=== PATIENT | female | born 2000 | race African-American/Black ===

== ENCOUNTER 2022-04-22 09:24 | Emergency (ER) | payer SELFPAY | END 2022-04-22 13:18 | disposition home or self-care (01) | LOC: MW.ED 09:24 | DX: S83.91XA Sprain of unspecified site of right knee, initial encounter (principal); W19.XXXA Unspecified fall, initial encounter | CPT/HCPCS: 73562-26-RT; 73562-RT; 99283 ==

== ENCOUNTER 2022-06-30 18:56 | Emergency (ER) | payer SELFPAY ==
[2022-06-30] MEDS ORDERED: traMADol 50 MG Tab PO ONE (19:39)
== END 2022-06-30 20:20 | disposition home or self-care (01) ==
LOC: MW.ED 18:56
DX: S93.401A Sprain of unspecified ligament of right ankle, initial encounter (principal); X50.1XXA Overexertion from prolonged static or awkward postures, initial encounter
CPT/HCPCS: 73610; 99283; A9270

== ENCOUNTER 2022-07-04 15:17 | Emergency (ER) | payer SELFPAY ==
[2022-07-04] MEDS ORDERED: Ketorolac 30 MG/ML SDV IM STA (15:40)
== END 2022-07-04 17:06 | disposition home or self-care (01) ==
LOC: MW.ED 15:17
DX: S93.401A Sprain of unspecified ligament of right ankle, initial encounter (principal); W10.9XXA Fall (on) (from) unspecified stairs and steps, initial encounter
CPT/HCPCS: 73610; 96372; 99283; J1885

== ENCOUNTER 2022-08-10 22:32 | Emergency (ER) | payer MEDICAID | END 2022-08-11 00:58 | disposition home or self-care (01) | LOC: MW.ED 22:32 | DX: S62.613A Displaced fracture of proximal phalanx of left middle finger, initial encounter for closed fracture (principal); X50.1XXA Overexertion from prolonged static or awkward postures, initial encounter | CPT/HCPCS: 73110-26-LT; 73110-LT; 73130-26-LT; 73130-LT; 99283 ==

== ENCOUNTER 2022-08-11 19:19 | Emergency (ER) | payer MEDICAID ==
[2022-08-11] MEDS ORDERED: Ketorolac 30 MG/ML SDV IM STA (23:10)
== END 2022-08-11 23:34 | disposition home or self-care (01) ==
LOC: MW.ED 19:19
DX: S62.613A Displaced fracture of proximal phalanx of left middle finger, initial encounter for closed fracture (principal); W22.8XXA Striking against or struck by other objects, initial encounter
CPT/HCPCS: 96372; 99283; J1885

== ENCOUNTER 2022-08-17 00:58 | Emergency (ER) | payer MEDICAID ==
[2022-08-17] MEDS ORDERED: Ibuprofen 400 MG Tab PO ONE (01:11)
== END 2022-08-17 02:18 | disposition home or self-care (01) ==
LOC: MW.ED 00:58
DX: S62.92XA Unspecified fracture of left hand, initial encounter for closed fracture (principal); W01.0XXA Fall on same level from slipping, tripping and stumbling without subsequent striking against object, initial encounter
CPT/HCPCS: 73130; 99283; A9270

== ENCOUNTER 2022-08-20 01:05 | Observation (INO) | payer MEDICAID ==
[2022-08-20] MEDS ORDERED: Sodium Chloride 0.9% 2.5 ML Syringe FLUSH PRN ×2 (01:29→07:57)
[2022-08-20] MEDS ORDERED: Sodium Chloride 0.9% 1,000 ML IV ONE (01:29)
[2022-08-20] MEDS ORDERED: Sodium Chloride 0.9% 10 ML Syringe FLUSH PRN ×2 (01:29→07:57)
[2022-08-20 02:45] LABS: CARBON DIOXIDE,CO2 40.7 mmol/L (21.0-32.0)
[2022-08-20 02:47] LABS: POTASSIUM,K 1.9 mmol/L (3.5-5.1)
[2022-08-20] MEDS ORDERED: Potassium Chloride 20 MEQ in Premix Bag 1 BAG IV ONE (02:48)
[2022-08-20] MEDS ORDERED: Potassium Chloride 20 MEQ Tab.ER PO ONE ×2 (02:49→12:45)
[2022-08-20] MEDS ORDERED: Sodium Chloride 0.9% 250 ML IV ONE (03:00)
[2022-08-20] MEDS: Potassium Chloride 20 MEQ in Premix Bag 1 BAG IV ONE ×2 (03:17→05:27)
[2022-08-20] MEDS ORDERED: Ondansetron 4 MG/2 ML SDV IVPUSH PRN (07:57)
[2022-08-20] MEDS ORDERED: Acetaminophen 325 MG Tab PO PRN (07:57)
[2022-08-20 08:59] LABS: CARBON DIOXIDE,CO2 34.6 mmol/L (21.0-32.0); POTASSIUM,K 2.7 mmol/L (3.5-5.1)
[2022-08-20] MEDS ORDERED: Magnesium Sulfate/Water 2 GM in Premix Bag 1 BAG IV ONE (09:39)
[2022-08-20] MEDS ORDERED: Lactated Ringers 1,000 ML IV SCH (09:45)
[2022-08-20] MEDS: Potassium Chloride 100 ML IV SCH ×2 (10:25→14:32)
[2022-08-20] MEDS: Magnesium Sulfate/Water 2 GM in Premix Bag 1 BAG IV ONE ×2 (10:31→13:30)
[2022-08-20] MEDS ORDERED: Potassium Chloride 100 ML IV SCH (14:30)
[2022-08-20] MEDS ORDERED: LORazepam 2 MG/ML SDV IVPUSH PRN (15:23)
[2022-08-20] MEDS: LORazepam 2 MG/ML SDV IVPUSH PRN (20:21)
[2022-08-21 06:04] LABS: CARBON DIOXIDE,CO2 29.1 mmol/L (21.0-32.0); POTASSIUM,K 3.1 mmol/L (3.5-5.1)
[2022-08-21] MEDS: Potassium Chloride 20 MEQ Tab.ER PO SCH ×2 (09:15→11:22)
[2022-08-21] MEDS: LORazepam 2 MG/ML SDV IVPUSH PRN ×2 (10:36→15:23)
[2022-08-21] MEDS ORDERED: Haloperidol 1 MG Tab PO ONE (10:39)
[2022-08-21] MEDS ORDERED: D5 1/2 NS w/ 20 mEq/L KCl 1,000 ML IV SCH (10:45)
[2022-08-21] MEDS: Topiramate 50 MG Tab PO SCH ×2 (11:21→21:36)
[2022-08-21] MEDS: Dextrose 5%-0.45% NaCl 1,000 ML IV SCH (11:40)
[2022-08-21] MEDS: LORazepam 0.5 MG Tab PO SCH ×2 (14:43→21:37)
[2022-08-21 17:13] LABS: CARBON DIOXIDE,CO2 29.6 mmol/L (21.0-32.0); POTASSIUM,K 3.9 mmol/L (3.5-5.1)
[2022-08-21] MEDS ORDERED: Haloperidol 1 MG Tab PO SCH (21:00)
[2022-08-22] MEDS: LORazepam 2 MG/ML SDV IVPUSH PRN (02:12)
[2022-08-22] MEDS: LORazepam 0.5 MG Tab PO SCH ×2 (06:07→13:37)
[2022-08-22 06:36] LABS: CARBON DIOXIDE,CO2 29.7 mmol/L (21.0-32.0); POTASSIUM,K 3.6 mmol/L (3.5-5.1)
[2022-08-22] MEDS: Dextrose 5%-0.45% NaCl 1,000 ML IV SCH (07:32)
[2022-08-22] MEDS ORDERED: Magnesium Sulfate/Water 2 GM in Premix Bag 1 BAG IV ONE (09:06)
[2022-08-22] MEDS: Topiramate 50 MG Tab PO SCH (09:25)
[2022-08-22] MEDS ORDERED: Haloperidol 1 MG Tab PO ONE (17:12)
[2022-08-22] MEDS ORDERED: Topiramate 50 MG Tab PO ONE (17:16)
== END 2022-08-22 18:10 | disposition home or self-care (01) ==
LOC: MW.ED 01:05 → MW.MS 03:06
PROVIDERS: ADMIT Internal Medicine; ATTEND Internal Medicine
DX: E87.6 Hypokalemia (principal); F50.2 Bulimia nervosa; J45.909 Unspecified asthma, uncomplicated; K21.9 Gastro-esophageal reflux disease without esophagitis; F17.210 Nicotine dependence, cigarettes, uncomplicated; Z72.89 Other problems related to lifestyle; Z98.890 Other specified postprocedural states; Z20.822 Contact with and (suspected) exposure to COVID-19
CPT/HCPCS: 36415; 71045; 74176; 80048; 80053; 81001; 81025; 83690; 83735; 84100; 84132; 84484; 85025; 87635; 93005; 96361; 96365; 96366; 96368; 96375; 96376; 99285; A9270; G0378; J2060; J2405; J3475; J3480; J7030; J7042; J7050; J7120; U0002

== ENCOUNTER 2022-08-30 15:34 | Emergency (ER) | payer MEDICAID ==
[2022-08-30] MEDS ORDERED: Sodium Chloride 0.9% 10 ML Syringe FLUSH PRN (17:49)
[2022-08-30] MEDS ORDERED: Sodium Chloride 0.9% 2.5 ML Syringe FLUSH PRN (17:49)
[2022-08-30] MEDS ORDERED: Sodium Chloride 0.9% 1,000 ML IV ONE (17:50)
[2022-08-30 18:21] LABS: CARBON DIOXIDE,CO2 37.9 mmol/L (21.0-32.0); POTASSIUM,K 2.7 mmol/L (3.5-5.1)
[2022-08-30] MEDS ORDERED: Potassium Chloride 20 MEQ in Premix Bag 1 BAG IV ONE (18:48)
[2022-08-30] MEDS ORDERED: Potassium Chloride 20 MEQ Tab.ER PO STA (18:49)
[2022-08-30] MEDS ORDERED: Sodium Chloride 0.9% 250 ML IV SCH (19:00)
[2022-08-30] MEDS ORDERED: LORazepam 2 MG/ML SDV IVPUSH ONE (19:48)
[2022-08-30 23:15] LABS: CARBON DIOXIDE,CO2 36.4 mmol/L (21.0-32.0); POTASSIUM,K 2.9 mmol/L (3.5-5.1)
[2022-08-30] MEDS ORDERED: Potassium Chloride 10% 20 MEQ/15 ML Soln 30 ML UD Cup PO ONE (23:34)
[2022-08-30] MEDS ORDERED: NS with KCl 40mEq 1,000 ML IV ONE (23:56)
[2022-08-31] MEDS ORDERED: LORazepam 2 MG/ML SDV IVPUSH ONE ×2 (00:24→01:29)
[2022-08-31 04:59] LABS: CARBON DIOXIDE,CO2 31.9 mmol/L (21.0-32.0); POTASSIUM,K 3.5 mmol/L (3.5-5.1)
== END 2022-08-31 05:32 | disposition home or self-care (01) ==
LOC: MW.ED 15:34
DX: F50.2 Bulimia nervosa (principal); E87.6 Hypokalemia; Z68.1 Body mass index [BMI] 19.9 or less, adult
CPT/HCPCS: 36415; 71045; 80048; 80053; 83735; 84703; 85025; 93005; 96361; 96365; 96366; 96375; 96376; 99285; A9270; J2060; J3480; J3490; J7030; J7050; 93010; 99284

== ENCOUNTER 2022-10-21 21:21 | Emergency (ER) | payer MEDICAID ==
[2022-10-21] MEDS ORDERED: Sodium Chloride 0.9% 10 ML Syringe FLUSH PRN (21:23)
[2022-10-21] MEDS ORDERED: Sodium Chloride 0.9% 2.5 ML Syringe FLUSH PRN (21:23)
[2022-10-21] MEDS ORDERED: Acetaminophen 325 MG Tab PO ONE (21:48)
[2022-10-21 22:44] LABS: BLOOD UREA NITROGEN,BUN 12 mg/dL (7.0-18.0); CARBON DIOXIDE,CO2 31.9 mmol/L (21.0-32.0); CHLORIDE,CL 98 mmol/L (98-107); GLUCOSE RANDOM 97 mg/dL (74-106); SODIUM,NA 137 mmol/L (136-145)
[2022-10-21 22:51] LABS: ESTIMATED GFR 127 mL/min (>60); POTASSIUM,K 2.3 mmol/L (3.5-5.1)
[2022-10-21] MEDS ORDERED: Potassium Chloride 20 MEQ Tab.ER PO ONE (22:51)
[2022-10-21] MEDS ORDERED: Potassium Chloride 10 MEQ in Premix Bag 1 BAG IV ONE (22:51)
[2022-10-21] MEDS ORDERED: Magnesium Sulfate/Water 2 GM in Premix Bag 1 BAG IV ONE (22:52)
[2022-10-21] MEDS ORDERED: Sodium Chloride 0.9% 250 ML IV ONE (23:00)
== END 2022-10-22 01:53 | disposition home or self-care (01) ==
LOC: MW.ED 21:21
DX: O99.281 Endocrine, nutritional and metabolic diseases complicating pregnancy, first trimester (principal); E87.6 Hypokalemia; O99.511 Diseases of the respiratory system complicating pregnancy, first trimester; J45.909 Unspecified asthma, uncomplicated; Z3A.01 Less than 8 weeks gestation of pregnancy
CPT/HCPCS: 36415; 76817; 80053; 81001; 83735; 84100; 84702; 85025; 86900; 86901; 93005; 96365; 96366; 96368; 99284; A9270; J3475; J3480; J3490; J7050; 93010; 99283

== ENCOUNTER 2023-03-29 10:20 | Emergency (ER) | payer MEDICAID ==
[2023-03-29] MEDS ORDERED: Sodium Chloride 0.9% 1,000 ML IV ONE (10:54)
[2023-03-29 11:01] LABS: BASOPHILS ABSOLUTE AUTO 0.1 K/uL (0.0-0.1); BASOPHILS PERCENT AUTO 0.6 % (0.0-1.5); EOSINOPHILS ABSOLUTE AUTO 0.3 K/uL (0.0-0.7); EOSINOPHILS PERCENT AUTO 3.6 % (0.0-7.0); HEMATOCRIT 36.3 % (36.0-46.0); HEMOGLOBIN 11.9 g/dL (12.0-16.0); LYMPHOCYTES ABSOLUTE AUTO 1.5 K/uL (0.6-2.4); MEAN CORPUSCULAR HEMOGLOBIN 25.6 pg (27.0-32.0); MEAN CORPUSCULAR HGB CONC 32.8 g/dL (31.0-37.0); MEAN CORPUSCULAR VOLUME 78.1 fL (80.0-98.0); MONOCYTES ABSOLUTE AUTO 0.6 K/uL (0.0-0.8); MONOCYTES PERCENT AUTO 6.9 % (0.0-15.0); NEUTROPHILS ABSOLUTE AUTO 5.7 K/uL (1.4-5.7); NEUTROPHILS PERCENT AUTO 69.9 % (48.0-80.0); NRBC ABSOLUTE 0 K/uL; PLATELET COUNT,PLT 255 K/uL (150-400); RED BLOOD CELL COUNT 4.65 M/uL (4.30-5.90)
[2023-03-29 11:39] LABS: A/G RATIO 0.7 (0.9-1.6); ALBUMIN 2.9 g/dL (3.4-5.0); BILIRUBIN TOTAL 0.5 mg/dL (0.2-1.0); CALCIUM 8.6 mg/dL (8.5-10.1); CARBON DIOXIDE,CO2 28.8 mmol/L (21.0-32.0); CREATININE 0.6 mg/dL (0.6-1.0); EST CRCL DRUG DOSING (CG) 125.32 mL/min; MAGNESIUM 1.8 mg/dL (1.8-2.4); POTASSIUM,K 3.2 mmol/L (3.5-5.1); TSH ULTRASENSITIVE 0.44 uIU/mL (0.36-3.74)
[2023-03-29 12:12] LABS: APPEARANCE,URINE SLT CLOUDY; BILIRUBIN,URINE NEGATIVE (NEGATIVE); COLOR,URINE YELLOW; GLUCOSE,URINE NEGATIVE (NEGATIVE); KETONES,URINE NEGATIVE (NEGATIVE); LEUKOCYTE ESTERASE,URINE MODERATE (NEGATIVE); NITRITE,URINE NEGATIVE (NEGATIVE); OCCULT BLOOD,URINE NEGATIVE (NEGATIVE); PH,URINE 7.5 (5.0-8.0); PROTEIN,URINE TRACE mg/dL (NEGATIVE)
[2023-03-29 12:21] LABS: BACTERIA,URINE FEW (NEGATIVE); EPITHELIAL CELLS,URINE MODERATE (NONE-FEW); MUCUS,URINE LIGHT (NONE-MOD); RBC,URINE 0-2 (0-2/HPF)
[2023-03-29] MEDS ORDERED: Potassium Chloride 20 MEQ Tab.ER PO ONE (12:30)
== END 2023-03-29 12:50 | disposition home or self-care (01) ==
LOC: MW.ED 10:20
DX: O99.891 Other specified diseases and conditions complicating pregnancy (principal); R42 Dizziness and giddiness; R82.71 Bacteriuria; O99.283 Endocrine, nutritional and metabolic diseases complicating pregnancy, third trimester; E87.6 Hypokalemia; Z3A.29 29 weeks gestation of pregnancy
CPT/HCPCS: 36415; 80053; 81001; 81025; 83735; 84443; 85025; 87086; 96360; 99284; A9270; J7030

== ENCOUNTER 2023-11-05 17:32 | Emergency (ER) | payer MEDICAID, OTHER ==
[2023-11-05] MEDS: Metoclopramide 10 MG/2 ML SDV IVPUSH STA (18:24)
[2023-11-05] MEDS: Sodium Chloride 0.9% 1,000 ML IV STA (18:24)
[2023-11-05] MEDS: Sodium Chloride 0.9% 10 ML Syringe FLUSH PRN (18:25)
[2023-11-05] MEDS: Sodium Chloride 0.9% 2.5 ML Syringe FLUSH PRN (18:25)
[2023-11-05] MEDS: diphenhydrAMINE 50 MG/ML SDV IVPUSH STA (18:25)
[2023-11-05 18:34] LABS: BASOPHILS ABSOLUTE AUTO 0.07 K/uL (0.00-0.20); BASOPHILS PERCENT AUTO 0.7 % (0.0-1.0); EOSINOPHILS ABSOLUTE AUTO 0.25 K/uL (0.00-0.45); EOSINOPHILS PERCENT AUTO 2.4 % (0.0-6.0); HEMATOCRIT 33.9 % (37.0-47.0); HEMOGLOBIN 11.5 g/dL (12.0-16.0); IMMATURE GRAN ABSOLUTE AUTO 0.04 K/uL (0.00-0.05); IMMATURE GRAN PERCENT AUTO 0.4 % (0.0-0.4); LYMPHOCYTES ABSOLUTE AUTO 1.79 K/uL (1.00-4.80); LYMPHOCYTES PERCENT AUTO 17.1 % (24.0-44.0); MEAN CORPUSCULAR HEMOGLOBIN 27.1 pg (28.0-32.0); MEAN CORPUSCULAR HGB CONC 33.9 g/dL (32.0-36.0); MEAN CORPUSCULAR VOLUME 79.8 fL (83.0-99.0); MEAN PLATELET VOLUME 9.9 fL (9.4-12.3); MONOCYTES ABSOLUTE AUTO 0.96 K/uL (0.00-0.80); MONOCYTES PERCENT AUTO 9.2 % (0.0-8.0); NEUTROPHILS ABSOLUTE AUTO 7.36 K/uL (1.80-7.70); NEUTROPHILS PERCENT AUTO 70.2 % (41.0-71.0); PLATELET COUNT,PLT 313 K/uL (150-400); RED BLOOD CELL COUNT 4.25 M/uL (4.10-5.30); WHITE BLOOD CELL COUNT,WBC 10.47 K/uL (3.9-11.3)
[2023-11-05 18:35] LABS: APPEARANCE,URINE CLEAR; BILIRUBIN,URINE NEGATIVE (NEGATIVE); COLOR,URINE YELLOW; GLUCOSE,URINE NEGATIVE (NEGATIVE); KETONES,URINE NEGATIVE (NEGATIVE); LEUKOCYTE ESTERASE,URINE SMALL (NEGATIVE); NITRITE,URINE NEGATIVE (NEGATIVE); OCCULT BLOOD,URINE NEGATIVE (NEGATIVE); PROTEIN,URINE NEGATIVE (NEGATIVE); UROBILINOGEN,URINE 0.2 EU/dL (<2.0)
[2023-11-05 18:42] LABS: AMORPHOUS SEDIMENT,URINE MODERATE (NEGATIVE); BACTERIA,URINE 1+ (NEGATIVE); EPITHELIAL CELLS,URINE OCCASIONAL (NONE-FEW); RBC,URINE 0-1 (0-2/HPF)
[2023-11-05] MEDS: cefTRIAXone 1 GM in Sodium Chloride 0.9% 50 ML IV STA (19:04)
[2023-11-05 19:07] LABS: A/G RATIO 0.8 (0.9-1.6); BILIRUBIN TOTAL 0.2 mg/dL (0.2-1.0); CALCIUM 8.5 mg/dL (8.5-10.1); CARBON DIOXIDE,CO2 21.1 mmol/L (21.0-32.0); CREATININE 0.6 mg/dL (0.6-1.0); EST CRCL DRUG DOSING (CG) 133.46 mL/min; POTASSIUM,K 3.8 mmol/L (3.5-5.1); PROTEIN TOTAL,TP 6.6 g/dL (6.4-8.2)
[2023-11-05] MEDS: Magnesium Sulfate/Water 2 GM in Premix Bag 1 BAG IV STA (19:47)
== END 2023-11-05 20:42 | disposition home or self-care (01) ==
LOC: MW.ED 17:32
DX: O23.41 Unspecified infection of urinary tract in pregnancy, first trimester (principal); N39.0 Urinary tract infection, site not specified; O99.281 Endocrine, nutritional and metabolic diseases complicating pregnancy, first trimester; E83.42 Hypomagnesemia; O99.891 Other specified diseases and conditions complicating pregnancy; R42 Dizziness and giddiness; Z3A.10 10 weeks gestation of pregnancy
CPT/HCPCS: 36415; 80053; 81001; 81025; 83690; 83735; 85025; 87086; 96361; 96365; 96367; 96375; 99284; J0696; J1200; J2765; J3475; J3490; J7030

== ENCOUNTER 2024-05-26 05:01 | Inpatient (IN) | payer MEDICAID ==
[2024-05-26] MEDS ORDERED: Terbutaline 1 MG/ML SDV SUBCUT PRN (05:09)
[2024-05-26] MEDS ORDERED: Sodium Chloride 0.9% 10 ML Syringe FLUSH PRN (05:09)
[2024-05-26] MEDS ORDERED: Methylergonovine 0.2 MG/1 ML Amp IM PRN ×2 (05:09→09:28)
[2024-05-26] MEDS ORDERED: Misoprostol 200 MCG Tab PO PRN (05:09)
[2024-05-26] MEDS ORDERED: Tranexamic Acid IN NACL,ISO-OS 1,000 MG in Premix Bag 1 BAG IV PRN ×2 (05:09→09:28)
[2024-05-26] MEDS ORDERED: Carboprost Tromethamine 250 MCG/1 mL Vial IM PRN (05:09)
[2024-05-26] MEDS ORDERED: Lidocaine 1% 50 ML MDV INJECT PRN (05:09)
[2024-05-26] MEDS ORDERED: Sodium Chloride 0.9% 20 ML SDV IV PRN (05:09)
[2024-05-26] MEDS ORDERED: Butorphanol 2 MG/ML SDV IVPUSH PRN (05:09)
[2024-05-26] MEDS ORDERED: Sodium Chloride 0.9% 2.5 ML Syringe FLUSH PRN (05:09)
[2024-05-26] MEDS ORDERED: Water For Irrigation,Sterile 1,000 ML Container IRR PRN (05:09)
[2024-05-26] MEDS ORDERED: Oxytocin/0.9 % Sodium Chloride 30 UNIT/500 ML BAG IV SCH (05:15)
[2024-05-26] MEDS: Oxytocin/0.9 % Sodium Chloride 30 UNIT/500 ML BAG IV SCH (05:53)
[2024-05-26] MEDS: Lactated Ringers 1,000 ML IV SCH (05:53)
[2024-05-26 06:17] LABS: HEMATOCRIT 30.3 % (37.0-47.0); HEMOGLOBIN 9.7 g/dL (12.0-16.0); MEAN CORPUSCULAR VOLUME 71.8 fL (83.0-99.0); MEAN PLATELET VOLUME 10.7 fL (9.4-12.3); PLATELET COUNT,PLT 303 K/uL (150-400); RED BLOOD CELL COUNT 4.22 M/uL (4.10-5.30); WHITE BLOOD CELL COUNT,WBC 9.69 K/uL (3.9-11.3)
[2024-05-26] MEDS ORDERED: ePHEDrine 50 MG/ML SDV IVPUSH PRN (07:08)
[2024-05-26] MEDS ORDERED: Phenylephrine HCl In 0.9% NaCl 1 MG/10 ML Syringe IVPUSH PRN (07:08)
[2024-05-26] MEDS ORDERED: dexmedeTOMIDine HCl 200 MCG/2 ML SDV EPIDUR SCH (07:15)
[2024-05-26] MEDS: Ropivacaine HCl/PF 400 MG in Premix Bag 1 BAG EPIDUR SCH (07:45)
[2024-05-26] MEDS ORDERED: Ondansetron 4 MG/2 ML SDV IVPUSH SCH (09:15)
[2024-05-26] MEDS ORDERED: Lanolin 100% Cream 7 GM Tube TOP PRN (09:28)
[2024-05-26] MEDS ORDERED: Witch Hazel Medicated Pads 40/Jar TOP PRN (09:28)
[2024-05-26] MEDS ORDERED: Benzocaine/Menthol 20%-0.5% Spray 78 GM Cannister TOP PRN (09:28)
[2024-05-26] MEDS ORDERED: Misoprostol 200 MCG Tab RECTAL PRN (09:28)
[2024-05-26] MEDS ORDERED: Docusate Sodium 100 MG Cap PO PRN (09:28)
[2024-05-26 10:23] LABS: PH,UMBILICAL ARTERIAL 7.277 (7.18-7.38); PH,UMBILICAL VENOUS 7.25 (7.25-7.45)
[2024-05-26] MEDS: Ibuprofen 800 MG Tab PO PRN (15:14)
[2024-05-27] MEDS: Acetaminophen 500 MG Tab PO PRN (04:23)
[2024-05-27 06:50] LABS: HEMATOCRIT 32.4 % (37.0-47.0); HEMOGLOBIN 10.1 g/dL (12.0-16.0)
== END 2024-05-27 13:37 | disposition home or self-care (01) | DRG 807 ==
LOC: MW.OB 05:01 → OBSVTOIN 09:28 → MW.OB 14:09
PROVIDERS: ADMIT Obstetrics & Gynecology; ATTEND Obstetrics & Gynecology
PROC: 10E0XZZ Delivery of Products of Conception, External Approach (ICD-10-PCS; principal; 2024-05-26)
PROC: 10907ZC Drainage of Amniotic Fluid, Therapeutic from Products of Conception, Via Natural or Artificial Opening (ICD-10-PCS; 2024-05-26)
PROC: 3E033VJ Introduction of Other Hormone into Peripheral Vein, Percutaneous Approach (ICD-10-PCS; 2024-05-26)
PROC: 3E0R3BZ Introduction of Anesthetic Agent into Spinal Canal, Percutaneous Approach (ICD-10-PCS; 2024-05-26)
PROC: 00HU33Z Insertion of Infusion Device into Spinal Canal, Percutaneous Approach (ICD-10-PCS; 2024-05-26)
DX: O36.5930 Maternal care for other known or suspected poor fetal growth, third trimester, not applicable or unspecified (principal); Z37.0 Single live birth; O99.344 Other mental disorders complicating childbirth; F41.9 Anxiety disorder, unspecified; F32.A Depression, unspecified; F43.10 Post-traumatic stress disorder, unspecified; Z3A.38 38 weeks gestation of pregnancy
CPT/HCPCS: 36415; 51702; 59025; 59409; 82803; 85014; 85018; 85027; 86592; 86850; 86900; 86901; A9270-GY; J2590; J2795; J7120

== ENCOUNTER 2025-06-06 21:09 | Emergency (ER) | payer MEDICAID | END 2025-06-07 01:48 | disposition home or self-care (01) | LOC: MW.ED 21:09 | DX: S20.212A Contusion of left front wall of thorax, initial encounter (principal); F17.210 Nicotine dependence, cigarettes, uncomplicated; Z79.899 Other long term (current) drug therapy; Z86.73 Personal history of transient ischemic attack (TIA), and cerebral infarction without residual deficits; X50.1XXA Overexertion from prolonged static or awkward postures, initial encounter; Y93.89 Activity, other specified | CPT/HCPCS: 71101; 99283; A9270 ==

== ENCOUNTER 2025-07-27 23:14 | Emergency (ER) | payer SELFPAY ==
[2025-07-27 23:35] LABS: BASOPHILS ABSOLUTE AUTO 0.10 K/uL (0.00-0.20); BASOPHILS PERCENT AUTO 1.8 % (0.0-1.0); EOSINOPHILS ABSOLUTE AUTO 0.25 K/uL (0.00-0.45); EOSINOPHILS PERCENT AUTO 4.4 % (0.0-6.0); IMMATURE GRAN ABSOLUTE AUTO 0.01 K/uL (0.00-0.05); IMMATURE GRAN PERCENT AUTO 0.2 % (0.0-0.4); LYMPHOCYTES ABSOLUTE AUTO 1.79 K/uL (1.00-4.80); LYMPHOCYTES PERCENT AUTO 31.5 % (24.0-44.0); MEAN PLATELET VOLUME 9.5 fL (9.4-12.3); MONOCYTES ABSOLUTE AUTO 0.47 K/uL (0.00-0.80); MONOCYTES PERCENT AUTO 8.3 % (0.0-8.0); NEUTROPHILS ABSOLUTE AUTO 3.06 K/uL (1.80-7.70); NEUTROPHILS PERCENT AUTO 53.8 % (41.0-71.0); NRBC ABSOLUTE 0.00 K/uL (0.00-0.02); NRBC PERCENT 0.0 /100WBC (0.0-0.2); PLATELET COUNT,PLT 339 K/uL (150-400); RED BLOOD CELL COUNT 4.28 M/uL (4.10-5.30); WHITE BLOOD CELL COUNT,WBC 5.68 K/uL (3.9-11.3)
[2025-07-27 23:46] LABS: AMPHETAMINES SCREEN, URINE NEGATIVE (CUTOFF=500); BUPRENORPHINE SCREEN,URINE NEGATIVE (CUTOFF=10); METHADONE SCREEN, URINE NEGATIVE (CUTOFF=200); METHAMPHETAMINES SCREEN, URINE NEGATIVE (CUTOFF=500); OXYCODONE SCREEN,URINE NEGATIVE (CUT0FF=100); PCP SCREEN,URINE NEGATIVE (CUTOFF=25); THC SCREEN,URINE 20 NG/ML PRESUMPTIVE POSITIVE (CUTOFF=50)
[2025-07-28 00:45] LABS: A/G RATIO 1.1 (0.9-1.6); ALANINE AMINOTRANSFERASE,ALT 22 IU/L (14-63); ASPARTATE AMNIOTRANSFERASE,AST 19 IU/L (15-37); BILIRUBIN TOTAL 0.3 mg/dL (0.2-1.0); BLOOD UREA NITROGEN,BUN 10 mg/dL (7.0-18.0); CARBON DIOXIDE,CO2 22.8 mmol/L (21.0-32.0); CHLORIDE,CL 106 mmol/L (98-107); CREATININE 0.6 mg/dL (0.6-1.0); EST CRCL DRUG DOSING (CG) 125.92 mL/min; ESTIMATED GFR 129 mL/min (>60); ETHANOL BLOOD MEDICAL 62 mg/dL; GLUCOSE RANDOM 96 mg/dL (74-106); POTASSIUM,K 3.6 mmol/L (3.5-5.1); PROTEIN TOTAL,TP 6.4 g/dL (6.4-8.2); SODIUM,NA 140 mmol/L (136-145)
[2025-07-28] MEDS: Bacitracin Oint 1 GM U/D Packet TOP ONE (11:50)
== END 2025-07-28 12:01 ==
LOC: MW.ED 23:14
DX: S51.812A Laceration without foreign body of left forearm, initial encounter (principal); S51.811A Laceration without foreign body of right forearm, initial encounter; Z79.899 Other long term (current) drug therapy; Z86.73 Personal history of transient ischemic attack (TIA), and cerebral infarction without residual deficits; X78.9XXA Intentional self-harm by unspecified sharp object, initial encounter; Y93.89 Activity, other specified
CPT/HCPCS: 12002; 36415; 70450; 80053; 80143; 80179; 80305; 80307; 84443; 84703; 85025; 99285; A9270

== ENCOUNTER 2025-08-04 15:49 | Emergency (ER) | payer SELFPAY | END 2025-08-04 17:29 | disposition left against medical advice (07) | LOC: MW.ED 15:49 | DX: S60.211A Contusion of right wrist, initial encounter (principal); J45.909 Unspecified asthma, uncomplicated; Z79.899 Other long term (current) drug therapy; W22.8XXA Striking against or struck by other objects, initial encounter | CPT/HCPCS: 99283 ==